=== PATIENT | female | born 1980 | race Caucasian/White ===

== ENCOUNTER 2019-12-15 10:00 | Outpatient (RCR) | payer OTHER, SELFPAY | END 2020-03-08 11:57 | disposition other institution (70) | LOC: HO.PT 10:00 | PROVIDERS: Visit Provider Orthopaedic Surgery | DX: M22.11 Recurrent subluxation of patella, right knee (principal); M22.41 Chondromalacia patellae, right knee | CPT/HCPCS: 97110; 97530 ==